=== PATIENT | female | born 1950 | race Caucasian/White ===

== ENCOUNTER 2022-06-20 07:00 | Day surgery (SDC) | payer MEDICARE, BC ==
[~2022-06-20] VITALS: Ht 170.2 cm; Wt 81.8 kg
[~2022-06-20 07:00] MED LIST: FIBER350 GM PO; OCUVITE EYE +1 EACH PO
[2022-06-20] MEDS ORDERED: TURMERIC ROOT5000 GM (07:34)
--- NOTE | 2022-06-20 13:38 | NUR ---
06/20/22 1338 Maria Isabel Thakkar 1330 PATIENT ARRIVES TO PACU RESTING WITH EYES CLOSED. RESP EVEN AND UNLABORED, MASK AT 6 LITERS. 1335 PATIENT RESTING WITH EYES CLOSED. AWAKENS WITH VERBAL STIMULI. ANSWERS QUESTIONS APPROPRIATELY. RESP EVEN AND UNLABORED, MASK OFF. ROOM AIR SATS >98%.
[2022-06-20] MEDS ORDERED: ACETAMINOPHEN500 MG PO (13:52)
[2022-06-20] MEDS ORDERED: IBUPROFEN600 MG PO (13:52)
[2022-06-20] MEDS ORDERED: OXYCODON-ACETA1 EAC2 PO (13:52)
--- NOTE | 2022-06-20 14:23 | NUR ---
PT TO DAY SURGERY ROOM 3. REPORT TAKEN FROM JUSTIN DAVIES. PT RESTING IN BED. REPORTS PAIN 3/10. DENIES NAUSEA. AT BEDSIDE. PT SIPPING WATER AT BEDSIDE. YOSHI PAWS HEATER IN BLANKETS. PT DENIES WANTING FOOD AT THIS TIME. ICE PACK ON RIGHT BREAST SITE. CALL LIGHT WITHIN REACH.
--- NOTE | 2022-06-20 15:18 | NUR ---
PT RESTING IN BED WITH ICE OF INCISION SITE. AT BEDSIDE. PT REPORTS PAIN 2/10 AND DENIES NAUSEA. DENIES WANTING PAIN MEDICATION. PT SIPPING ON ICE WATER AT BEDSIDE. PT DRESSED IN PERSONAL CLOTHES WITH ASSISTANCE. DISCHARGE INSTRUCTIONS REVIEWED WITH PT. QUESTIONS AND CONCERNS ADDRESSED. IV D/C WNL.
--- NOTE | 2022-06-20 15:41 | NUR ---
PT DISCHARGED FROM DAY SURGERY VIA WHEELCHAIR TO PERSONAL AUTOMOBILE TO .
--- NOTE | 2022-06-22 10:37 | OR ---
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 PROCEDURE: Right needle localized partial mastectomy. ANESTHESIA: General, LMA Bharat Shah and yKaw Zamora CRNA and local 10 mL of 0.25% Marcaine with epinephrine. 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 She is a patient of Cheryl Whitfield. She was found on screening mammogram to have an abnormality at the medial aspect of the right breast. Subsequent image guided biopsy confirmed ductal carcinoma in situ, intermediate grade without comedo necrosis. The patient has family history of breast cancer in a sister, an aunt and grandmother. Genetic testing has shown no evidence of BRCA type mutation. Her options of management have been reviewed and at this time she is here to undergo right partial mastectomy without sentinel lymph node biopsy. The risk of bleeding, infection, cosmetic deformity, and need for additional treatment other than radiation were reviewed with her, she understands and wished to proceed. FINDINGS: The wire localization was in the medial aspect of the right breast. A circumareolar incision was used to provide better cosmesis. Wide resection was undertaken including the localizing wire and specimen radiograph confirmed the lesion to be in the excised specimen. The specimen radiograph was thought to show the lesion close to the margin and on that basis a wrap-around clamshell type excision of the medial and lateral aspect was undertaken in addition to provide certitude as regards a negative margin. Parenchymal reapproximation was undertaken so as to minimize the defect as she does have rather small breast. BLOOD LOSS: Less than 20 mL in aggregate. Electronically Signed By: BHARAT POWELL MD 06/22/22 [facility] PATIENT NAME: JOSE ANTONIO CHARLTON OPERATIVE REPORT DATE OF : 52 REPORT #: [id number] PHYSICIAN: BHARAT POWELL MD PCP: CHERYL WHITFIELD PAC REPORT IS CONFIDENTIAL AND NOT TO BE RELEASED WITHOUT AUTHORIZATION [facility] [address] [place], [place] [address] Signed DESCRIPTION OF PROCEDURE: The patient was brought to the operating room having been received from radiology suite with the wire emanating from the medial aspect of the right breast. She was given a general LMA type anesthetic. Preoperative antibiotic Ancef was given. Sequential compression device stockings were used and the heparin subcutaneously administered. The right breast was prepared with a spray Betadine solution and draped sterilely. The wire was only a few cm from the areolar margin in the medial aspect of the right breast. A circumareolar incision was deemed most cosmetically beneficial. The areolar margin was marked and put on tension and using a 15 blade, circumareolar incision was made in the medial aspect. Dissection was carried through the dermis sharply. A small flap was raised medially allowing for delivery of a localizing wire. The parenchyma of the breast was grasped and with wire for guidance wide resection undertaken down to the pectoralis fascia. Quite notably she has rather small breasts generally. A short stitch was placed superiorly and a long stitch placed laterally and the specimen sent for specimen radiograph. The radiograph confirmed the offending lesion to be in the excised specimen, but the margins seem to be close. The radiologist was unsure as to which margin it was, but thought that it was "superior." The clamshell-type excision superiorly, inferiorly, medially and laterally was undertaken essentially reexcising the biopsy cavity. The sutures marked the new margin. This much wider resection did decrease breast volume a fair amount. The specimen was passed for permanent pathology. Irrigation was undertaken within the biopsy cavity and electrocautery used to secure hemostasis. Parenchymal reapproximation was undertaken in multiple layers conforming the breast to a more acceptable appearance. The deep dermal layer was reapproximated with interrupted 2-0 Vicryl and interrupted 3-0 Vicryl used for skin apposition. Steri-Strips were applied as was an Acticoat dressing. Blood loss was estimated at less than 20 mL in aggregate. Sponge, needle, and instrument counts were reported as correct x3. MD SONJA Corona/MODL /[id number] cc: Cheryl Whitfield PA-C Electronically Signed By: BHARAT POWELL MD 06/22/22 [facility] PATIENT NAME: JOSE ANTONIO CHARLTON SABA OPERATIVE REPORT DATE OF : 52 REPORT #: [id number] PHYSICIAN: BHARAT POWELL MD PCP: CHERYL WHITFIELD PAC REPORT IS CONFIDENTIAL AND NOT TO BE RELEASED WITHOUT AUTHORIZATION [address] [address] Signed Copies: CHERYL WHITFIELD ~ Electronically Signed By: BHARAT POWELL MD 06/22/22 1037 PATIENT NAME: JOSE ANTONIO CHARLTON SABA OPERATIVE REPORT DATE OF : 52 REPORT #: [id number] PHYSICIAN: BHARAT POWELL MD PCP: CHERYL WHITFIELD REPORT IS CONFIDENTIAL AND NOT TO BE RELEASED WITHOUT AUTHORIZATION
--- NOTE | 2022-06-24 12:52 | PATH ---
[facility] [address] [place], [place] [address] Signed SPECIMEN(S): A RIGHT BREAST SPECIMEN(S): B RIGHT BREAST MEDIAL LATERAL MARGINS SPECIMEN SOURCE: A. RIGHT BREAST B. RIGHT BREAST MEDIAL LATERAL MARGINS CLINICAL HISTORY: Intraductal carcinoma in situ Specimen Time to Fixation- 06/20/2022 1:09:00 PM FINAL PATHOLOGIC DIAGNOSIS: A. 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 - Procedure: Lumpectomy. - Specimen laterality: Right breast. - Tumor site: 3 o'clock, approximately 4 cm from nipple. - Histologic type: Ductal carcinoma in situ. - Size of DCIS (estimated size): Extent of DCIS is at least 40 mm. - Architectural pattern: Predominantly solid-type. - Nuclear grade: Grade 2-3. - Necrosis: Absent. - Microcalcifications: Present in DCIS. - Margin status: - Superior margin (Blue): 1 mm to tumor. - Deep margin (black): >2 mm to tumor, focal atypical epithelium not diagnostic for tumor <1mm to margin. - Anterior margin (yellow): < 1mm to tumor. - Medial margin (red): Tumor focally abuts the medial margin on initial sample (specimen A), at least 3 mm from the new margin (specimen B). - Lateral margin (orange): Tumor <1 mm to the lateral margin on initial sample (specimen A), at least 3 mm from the new margin (specimen B). - Inferior margin (green): Tumor free of the surgical margins by >5 mm. - Regional lymph nodes: None submitted. - Distant metastasis: Not applicable. - Pathologic stage classification: pTis (DCIS), pNX, pMX. - Estrogen and Progesterone receptor status: Both reported negative ([id number]). - Additional findings: Biopsy site changes. PATIENT NAME: JOSE ANTONIO CHARLTON PATHOLOGY DATE OF : 52 REPORT #: [id number] PHYSICIAN: AUDRA PATHOLOGY PCP: CHERYL WHITFIELD PAC REPORT IS CONFIDENTIAL AND NOT TO BE RELEASED WITHOUT AUTHORIZATION [facility] [address] [place], [place] [address] Signed B. Right breast medial and lateral margins: - Several small foci of residual DCIS free of the new surgical margin (designated by sutures) x >3 mm. COMMENT: As part of [facility]' Quality Improvement Program, this case was reviewed by another member of our pathology staff. JVR:[id number]:C1NR MICROSCOPIC EXAMINATION: Histologic sections of all submitted blocks are examined by light microscopy. These findings, together with the gross examination, support the pathologic diagnosis. GROSS DESCRIPTION: A. The specimen, labeled and designated "Jono Charlton," and designated on the requisition "right breast," is received in formalin and consists of 27 g oriented portion of yellow-stokes fibroadipose tissue that is 6.1 x 4.0 x 3.4 cm and has an inserted metal localization wire that enters anteriorly. A short suture is present and identifies the superior margin; a long suture identifies the lateral margin. The specimen is inked as follows: superior - blue; inferior - green; medial - red; lateral - orange; anterior - yellow; and posterior - black. The specimen is serially sectioned from superior to inferior into 13 slices revealing a 3.5 x 1.7 x 0.3 cm hemorrhagic, possible biopsy cavity present in slices 3-9. The biopsy cavity is 1.0 cm from the anterior soft tissue margin, 0.4 cm from the posterior soft tissue margin, 1.6 cm from the superior soft tissue margin, 1.2 cm from the inferior soft tissue margin, 0.7 cm from the medial soft tissue margin, and 0.7 cm from the lateral soft tissue margin. Approximately 90% of the remaining specimen is a yellow-stokes greasy adipose tissue and 10% is a pink delicate fibrous tissue. A discrete mass lesion is not grossly identified. A biopsy cavity clip is not grossly identified. The specimen is entirely submitted in 28 cassettes. Cassette Summary: (A1-A2) slice one, superior soft tissue resection margin, perpendicular (A3-A4) slice two (A5-A6) slice three (A7-A8) slice four PATIENT NAME: JOSE ANTONIO CHARLTON SABA PATHOLOGY DATE OF : 52 REPORT #: [id number] PHYSICIAN: AUDRA AGUSTIN PCP: CHERYL WHITFIELD PAC REPORT IS CONFIDENTIAL AND NOT TO BE RELEASED WITHOUT AUTHORIZATION [facility] [address] [place] [id number] Signed (A9-A10) slice five (A11-A12) slice six (A13-A14) slice seven (A15-A16) slice eight (A17-A19) slice nine (A20-A22) slice 10 (A23-A24) slice 11 (A25-A26) slice 12 (A27-A28) slice 13, inferior soft tissue resection margin, perpendicular Cold ischemia time: 24 minutes Approximate Formalin time: 20 hours. A nicky-shaped clip is located in (A1) per histology B. The specimen, labeled and designated "Jono Charlton," and designated on the requisition "medial and lateral margins, right breast," is received in formalin and consists of 22 g oriented portion of yellow-stokes fibroadipose tissue that is 7.6 x 4.8 x 2.1 cm. Two sutures are present along one aspect identifying the new margins. The surface is inked blue, and the remainder of the specimen is inked black. The specimen is sectioned from medial to lateral into 19 slices revealing approximately 80% of the specimen is a yellow-stokes greasy adipose tissue and 20% is a pink rubbery fibrous tissue. No discrete mass lesions are grossly identified. The medial half of the specimen is in slices 1-9 and the lateral half of the specimen is in slices 10-19. The specimen is entirely submitted consecutively from medial to lateral into 27 cassettes. Cassette Summary: (B1) slice one, perpendicular (B2) slice two (B3-B4) slice three (B5-B6) slice four (B7-B8) slice five (B9-B10) slice six (B11-B12) slice seven (B13) slice eight (B14-B15) slice nine (B16) slice 10 (B17) slice 11 (B18) slice 12 (B19) slice 13 (B20) slice 14 PATIENT NAME: JOSE ANTONIO CHARLTON SABA PATHOLOGY DATE OF : 52 REPORT #: [id number] PHYSICIAN: AUDRA PATHOLOGY PCP: WHITFIELD,CHERYL PAC REPORT IS CONFIDENTIAL AND NOT TO BE RELEASED WITHOUT AUTHORIZATION [facility] [address] [facility] [place] [address] Signed (B21) slice 15 (B22-B23) slice 16 (B24-B25) slice 17 (B26) slice 18 (B27) slice 19, perpendicular Cold ischemia time: 24 minutes Approximate Formalin time: 20 hours. FB (under the direct supervision of a pathologist) The Gross Description was prepared using a voice recognition system. The report was reviewed for accuracy; however, sound-alike word errors, addition and/or deletions may occur. If there is any question about this report, please contact Client Services. PERFORMING LABORATORY: The technical component was performed by [facility], [address] [place] [id number] (CLIA# [id number]). Professional interpretation was performed by [facility], [address] [place] [phone] (CLIA#: [id number]). Diagnostician: Conrado Collier MD Pathologist Electronically Signed 06/24/2022 Copies: ~ PATIENT NAME: JOSE ANTONIO CHARLTON SABA PATHOLOGY DATE OF : 52 REPORT #: [id number] PHYSICIAN: AUDRA AGUSTIN PCP: CHERYL WHITFIELD PAC REPORT IS CONFIDENTIAL AND NOT TO BE RELEASED WITHOUT AUTHORIZATION
== END 2022-06-20 15:30 | disposition home or self-care (01) ==
LOC: DS 07:00 → MAM 08:00 → DS 08:00 → EDSTATUS 08:00 → DS 15:30
PROVIDERS: ATTEND Surgery
PROC: 0HBT0ZZ Excision of Right Breast, Open Approach (ICD-10-PCS; principal; 2022-06-20 12:00)
DX: D05.11 Intraductal carcinoma in situ of right breast (principal); K40.90 Unilateral inguinal hernia, without obstruction or gangrene, not specified as recurrent; Z90.710 Acquired absence of both cervix and uterus; Z80.3 Family history of malignant neoplasm of breast
CPT/HCPCS: 00400; 76098; 88307; J0131; J0690; J1100; J1644; J2001; J2405; J2704; J3010; J7121